=== PATIENT | male | born 1985 | race Caucasian/White ===

== ENCOUNTER 2024-12-28 09:21 | Outpatient (AMB) | payer OTHER, SELFPAY ==
--- NOTE | 2024-12-28 09:22 | A.OFFVIS_ITS ---
Vital Signs 12/28/24 09:34 Height 5 ft 9 in Weight 247 lb 8 oz BMI 36.5 BP 137/83 Blood Pressure Location Lt brachial Position Sitting Pulse 85 Intake Visit Reasons: hemorroids Intake Note: This patient presents for bleeding hemorrhoids. Pt c/o; reports rectal bleeding, constipation, occasional straining with bowel movements. Lithostripper Required: No Accompanied by: Self / Same As Patient Allergies No Known Allergies Allergy (Unverified 12/28/24 09:35) Medication List - Last Reconciled 12/28/24 by Juan Roman MD No Known Home Meds HPI HPI hemorroids: Details: 39-year-old [facility]. He says that he has occasional stinging pain in his anus. He says once in a while he would notice small amounts of blood per rectum on wiping He does admit he has IBS. He was both diarrhea and constipation on and off He denies any palpable mass on the anus. [facility] Medical History (Updated 12/28/24 @ 09:41 by Juan Roman MD) Hemorrhoids with complication Surgical History No pertinent past surgical history Family History Other Family history unknown Social History Alcohol intake: unknown Patient Tobacco Use Status: Tobacco use Unknown Review of Systems Const Denies chills and Denies fever(s) Card Denies chest pain, Denies dyspnea and Denies dyspnea on exertion Resp Denies cough, Denies dyspnea and Denies dyspnea on exertion GI Reports hematochezia and Denies change in bowel habits Denies hematuria and Denies difficulty urinating Musc Denies back pain and Denies limited range of motion Neuro Denies focal weakness and Denies convulsions Psych Denies depression and Denies mood swings Physical Exam Vital Signs: Last Vital Signs Pulse 85 12/28/24 09:34 BP 137/83 12/28/24 09:34 BMI result Body Mass Index 36.5 Const General: comfortable and no acute distress Orientation/consciousness: patient oriented x3 Neck Neck: Yes no lymphadenopathy Resp Auscultation: clear to auscultation bilaterally Cardio Rhythm: regular rhythm GI Other: Rectal exam shows no perianal lesions, small external hemorrhoids noted on both the left and right side Palpation (GI): Soft to palpation, nontender and no guarding Neuro General: patient oriented x3 Office Procedures Anoscopy He was in bonita-knife position. The anoscope was gently inserted. A full examination of the anal canal was done. He did have mixed internal and external hemorrhoids which were non bulky. No lesions. There was no fissure. There was no ulceration. There was no blood. [id number] Assessment & Plan Assessment & Plan (1) Hemorrhoids with complication: Code(s): K64.8 - Other hemorrhoids Category: Medical Plan: He describes stinging pain, and periodic passage of blood per rectum. I explained to him that his hemorrhoids are non bulky at all. I would not recommend any surgical intervention for now I did tell him that achieving better consistency of the stools we will help with this hemorrhoids symptoms. I am going to prescribe him Metamucil for this. I also will prescribe a steroid suppository for occasional swelling I will see him again in the office in about 3 months. He is comfortable with the plan above. Medications: New psyllium seed (sugar) (Metamucil (sugar) oral powder) 1 tbsp in a glass of juice or water once or twice a day 1 tbsp PO DAILY 1,254 grams 0RF hydrocortisone acetate (Anucort-HC) 25 mg ME BID PRN 24 ea 0RF hemorrhoids Coding Level of Care Code New Pt Level 3 (77870) Diagnoses Hemorrhoids with complication K64.8 CPT Codes Details - CPT: 52482-[id number] ([id number])
[2024-12-28 09:34] VITALS: BP 137/83; PULSE 85; BMI 36.5
== END 2024-12-28 09:47 | disposition home or self-care (01) ==
PROVIDERS: PCP Internal Medicine; Referring Provider Internal Medicine; Visit Provider Surgery
DX: K64.8 Other hemorrhoids (principal)
CPT/HCPCS: 46600; 99213

== ENCOUNTER → 2024-12-28 09:21 | Outpatient (BNVA) | payer OTHER, SELFPAY | PROVIDERS: PCP Internal Medicine; Referring Provider Internal Medicine; Visit Provider Surgery | DX: K64.8 Other hemorrhoids (principal) | CPT/HCPCS: 46600; 99212 ==

== ENCOUNTER 2025-03-30 09:30 | Outpatient (AMB) | payer OTHER, SELFPAY ==
--- NOTE | 2025-03-30 09:34 | A.OFFVIS_ITS ---
Vital Signs 03/30/25 09:42 Height 5 ft 9 in Weight 224 lb BMI 33.1 BP 139/88 Blood Pressure Location Rt brachial Position Sitting Pulse 95 Intake Visit Reasons: 3 mth follow up hemorroids Intake Note: Patient here for 3m follow up hemorrhoids. Reports improvement w/Hydrocortisone cr. Patient c/o: not taking Metamucil. 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 I had seen him last December, because of stinging pain and some blood this hemorrhoids. He did have irregular bowel habits so I prescribed him Metamucil at that time. He says he does not really have significant pain anymore but describes this as more of like irritation. He says that has a bowel movement once every 2-3 days. He says that the Metamucil has helped a little bit but he only takes it regularly. [facility] Medical History Hemorrhoids with complication Surgical History No pertinent past surgical history Family History Other Family history unknown Social History Alcohol intake: unknown Patient Tobacco Use Status: Tobacco use Unknown Review of Systems Const Denies chills and Denies fever(s) Card Denies chest pain Resp Denies cough GI Denies abdominal pain Physical Exam Vital Signs: Last Vital Signs Pulse 95 03/30/25 09:42 BP 139/88 03/30/25 09:42 BMI result Body Mass Index 33.1 Const General: comfortable and no acute distress Resp Effort & Inspection: normal respiratory effort Cardio Rate: regular rate GI Other: Rectal exam - small external hemorrhoids, no perianal skin breakdown, no thrombosis, no inflammation Assessment & Plan Assessment & Plan (1) Hemorrhoids with complication: Code(s): K64.8 - Other hemorrhoids Category: Medical Plan: He denies severe pain or bleeding with hemorrhoids. He does not have bulky hemorrhoidal tissue I told him we would not recommend proceeding with surgery at this time in view of his minimal symptoms I did advise him to try to see if we can take the Metamucil twice a day for better bowel habits I told him that he can always follow up with me in the office he has concerns with his hemorrhoids. I advised him on good blood sugar control as he has been recently diagnosed to be a diabetic. Coding Level of Care Code Est Pt Level 3 (65868) Diagnoses Hemorrhoids with complication K64.8
[2025-03-30 09:42] VITALS: BP 139/88; PULSE 95; BMI 33.1
== END 2025-03-30 09:55 | disposition home or self-care (01) ==
LOC: HO.HGS 09:30
PROVIDERS: PCP Internal Medicine; Referring Provider Surgery; Visit Provider Surgery
DX: K64.8 Other hemorrhoids (principal)
CPT/HCPCS: 99213

== ENCOUNTER → 2025-03-30 09:30 | Outpatient (BNVA) | payer OTHER, SELFPAY | PROVIDERS: PCP Internal Medicine; Visit Provider Surgery | DX: K64.8 Other hemorrhoids (principal) | CPT/HCPCS: 99212 ==